=== PATIENT | male | born 2000 | race African-American/Black ===

== ENCOUNTER 2022-06-18 01:17 | Outpatient (CLI) | payer MEDICAID, SELFPAY | END 2022-06-18 01:18 | disposition home or self-care (01) | LOC: AMB 06-22 13:35 | PROVIDERS: Visit Provider Emergency Medicine | DX: R51.9 Headache, unspecified (principal) | CPT/HCPCS: A0425; A0427 ==

== ENCOUNTER 2022-06-18 01:27 | Emergency (ER) | payer MEDICAID, SELFPAY ==
[2022-06-18 01:34] VITALS: BP 122/78; PULSE 72; RESP 18; TEMP 36.7; O2SAT 99; BMI 27.1
[2022-06-18 02:11] VITALS: TEMP 36.7
[2022-06-18] MEDS: KETOROLAC 30 MG/ML inj IM (02:11)
[2022-06-18] MEDS: diphenhydrAMINE 25 MG CAPSULE PO (02:11)
[2022-06-18 02:16] VITALS: BP 118/74; PULSE 75; RESP 18; TEMP 36.8; O2SAT 99
--- NOTE | 2022-06-18 02:32 | ED_ITS ---
HPI - General Adult General Date Seen: 06/18/22 Chief complaint: Unspecified Complaint, Adult Stated complaint: Migraine Time Seen by Provider: 06/18/22 01:28 Source: patient Mode of arrival: EMS Limitations: other History of Present Illness HPI narrative: Patient is a 21-year-old male with underlying polar disorder as well as schizophrenia who presents by EMS for evaluation of what he states are withdrawal symptoms. He tells me that he quit drinking about a month and a half ago, but continued to smoke cigarettes as well as marijuana. He says he ?quit smoking marijuana and tobacco 3 hours ago. He notes that he has a headache since then, and feels tense. He feels like he needs a muscle relaxer. He has prescription bottles with him for lands of pain and risperidone. His thinking is tangential at times, he does admit that he does not always take his medications as prescribed. He has a doctor, Dr. Ortiz in [facility], who he says he sees regularly. He says that this is court mandated. He does admit to hearing voices. He denies that these voices tell him to do anything to himself or others. He does note that he has at times had suicidal ideation but says he is not currently suicidal, and does not have thoughts of harming anyone else. He lives independently in [place]. Related Data Home Medications Medication Instructions Recorded Confirmed hydroxyzine HCl 25 mg tablet 25 mg PO TID PRN 06/18/22 06/18/22 olanzapine 10 mg tablet (Zyprexa) 10 mg PO BID 06/18/22 06/18/22 risperidone 3 mg tablet 3 mg PO QHS 06/18/22 06/18/22 Allergies Allergy/AdvReac Type Severity Reaction Status Date / Time No Known Drug Allergies Allergy Verified 06/18/22 01:37 Review of Systems Status of ROS: Reports: 6 or more systems reviewed and unremarkable except as noted in History and below [facility] Medical History Bipolar 1 disorder ?F31.9 - Bipolar disorder, unspecified (ICD-10) Cannabis use disorder ?F12.90 - Cannabis use, unspecified, uncomplicated (ICD-10) PTSD (post-traumatic stress disorder) ?F43.10 - Post-traumatic stress disorder, unspecified (ICD-10) Schizoaffective disorder, bipolar type ?F25.0 - Schizoaffective disorder, bipolar type (ICD-10) Surgical History No significant past surgical history Social History Smoking Status: Current every day smoker What tobacco products do you use: cigarettes Second hand tobacco smoke exposure: Yes How often do you have a drink containing alcohol: never How often do you have six or more drinks on one occasion: Never AUDIT-C Alcohol total score: 0 Non-prescribed substance use: marijuana (any form) and amphetamines/methamphetamines Exam Narrative: Exam Narrative: Vital signs as noted above. In general, an alert, nontoxic male. Cooperative. Head: Normocephalic, atraumatic. Eyes: Pupils are equal reactive. Extraocular movements are full. Conjunctivae are normal. ENT: Mucous membranes are moist. Throat is normal. Neck: Supple without lymphadenopathy. Heart: Regular rate and rhythm. No murmur or rub. Lungs: Clear bilaterally. No increased work of breathing, crackles or wheezes. Abdomen: Soft and nontender. No organomegaly. Extremities: Well perfused. No edema. No calf tenderness. Pulses intact. Neurologic: Patient is alert and oriented to person and place. Speech is fluent. Face is symmetric. Moves all extremities equally. Affect: Normal. Skin: Warm and dry. Well perfused. Const: Vital Signs, click to edit/add: Vital Signs - 24 hr 06/18/22 01:34 06/18/22 02:11 06/18/22 02:16 Temperature 98.0 F 98.0 F 98.2 F Pulse Rate [Right Pulse Oximeter] 72 75 Respiratory Rate 18 18 Blood Pressure [Ri ght Upper Arm] 122/78 118/74 Pulse Oximetry 99 99 Oxygen Delivery Me thod Room Air Room Air Documenting provider has reviewed patient's vital signs: yes Course Course Hospital Course: I spoke with him at length, he does not appear to present a danger to himself or others. I do not think he requires any psychiatric care acutely. With regard to his headache, I gave him some Toradol and Benadryl. Reassured him that he is not in danger of severe withdrawal from tobacco or marijuana in terms of dangerous physical symptoms. Can take ibuprofen or Tylenol as needed. He has hydroxyzine if needed for anxiety. Encouraged him to take his other medications as prescribed. Follow up with his regular doctor as usual. Return for new or worsening symptoms. Vital Signs Vital signs: Initial Vital Signs Temperature 98.0 F 06/18/22 01:34 Temperature Source Temporal Artery Scan 06/18/22 01:34 Pulse Rate 72 06/18/22 01:34 Respiratory Rate 18 06/18/22 01:34 Blood Pressure 122/78 06/18/22 01:34 Blood Pressure Mean 92 06/18/22 01:34 Blood Pressure Position Sitting 06/18/22 01:34 Pulse Oximetry 99 06/18/22 01:34 Oxygen Delivery Method Room Air 06/18/22 01:34 Vital Signs Temperature 98.0 F 06/18/22 01:34 Pulse Rate 72 06/18/22 01:34 Respiratory Rate 18 06/18/22 01:34 Blood Pressure 122/78 06/18/22 01:34 Pulse Oximetry 99 06/18/22 01:34 Oxygen Delivery Method Room Air 06/18/22 01:34 Temperature 98.2 F 06/18/22 02:16 Pulse Rate 75 06/18/22 02:16 Respiratory Rate 18 06/18/22 02:16 Blood Pressure 118/74 06/18/22 02:16 Pulse Oximetry 99 06/18/22 02:16 Oxygen Delivery Method Room Air 06/18/22 02:16 Discharge Plan Discharge Clinical Impression: Headache, Schizophrenia Patient Disposition: Home, Self-Care Condition: Stable Instructions: General Headache (ED) Additional Instructions: Follow-up with Dr. Ortiz as usual. Return to the ER for severe headache, fever, vomiting or other worsening. Okay to take Tylenol or Motrin at home. Prescriptions: No Action olanzapine [Zyprexa] 10 mg tablet 10 mg PO BID hydroxyzine HCl 25 mg tablet 25 mg PO TID PRN Patient Comments: take 2 tabs three times a day as needed risperidone 3 mg tablet 3 mg PO QHS Patient Comments: take 2 tabs three times a day as needed Stand Alone Forms: [facility] Info Instructions
[2022-06-18 02:37] VITALS: BP 118/74; PULSE 75; RESP 18; TEMP 36.8
== END 2022-06-18 02:12 | disposition home or self-care (01) ==
PROVIDERS: Emergency Provider Emergency Medicine
DX: R51.9 Headache, unspecified (principal); F20.9 Schizophrenia, unspecified
CPT/HCPCS: 96372; 99283; 99284; A9270; J1885

== ENCOUNTER 2022-07-20 07:29 | Outpatient (CLI) | payer MEDICARE, MEDICAID, SELFPAY | END 2022-07-20 07:30 | disposition home or self-care (01) | LOC: AMB 07-24 09:11 | PROVIDERS: Visit Provider Family Medicine | DX: R10.9 Unspecified abdominal pain (principal); K92.0 Hematemesis | CPT/HCPCS: A0425; A0429 ==

== ENCOUNTER 2022-07-21 18:09 | Outpatient (CLI) | payer MEDICARE, MEDICAID, SELFPAY | END 2022-07-21 18:10 | disposition home or self-care (01) | LOC: AMB 07-24 10:54 | PROVIDERS: Visit Provider Family Medicine | DX: F29 Unspecified psychosis not due to a substance or known physiological condition (principal) | CPT/HCPCS: A0425; A0428 ==

== ENCOUNTER 2022-09-25 21:38 | Outpatient (CLI) | payer MEDICARE, MEDICAID, SELFPAY | END 2022-09-25 21:39 | disposition home or self-care (01) | LOC: AMB 09-26 16:08 | PROVIDERS: Visit Provider Family Medicine | DX: F29 Unspecified psychosis not due to a substance or known physiological condition (principal) | CPT/HCPCS: A0425; A0429 ==

== ENCOUNTER 2022-09-25 21:54 | Emergency (ER) | payer MEDICARE, MEDICAID, SELFPAY ==
[2022-09-25 22:19] VITALS: BP 134/86; PULSE 68; RESP 16; TEMP 36.6; O2SAT 98; BMI 22.5
--- NOTE | 2022-09-25 22:41 | ED_ITS ---
HPI - General Adult General Time Seen by Provider: 22:41 Date Seen: 09/25/22 Chief complaint: Unspecified Complaint, Adult Stated complaint: infected tooth, back pain Time Seen by Provider: 09/25/22 22:23 Source: patient, EMS and RN notes reviewed Mode of arrival: EMS Limitations: no limitations History of Present Illness HPI narrative: Patient is a 22-year-old male brought in by EMS for being ?unwell?. Ezekiel is able to tell me that he has dental pain. He has a broken tooth on the bottom left that is painful. He has another broken tooth on the bottom right which is not bothering him. He has not seen a dentist. Has not had fevers. He admits he has underlying schizophrenia, bipolar disorder and multiple personality disorder. He does have a psychiatrist that he follows with. He states he has been taking his medicines. He does admit that his head never slows down, thoughts number slow down. He sometimes will have hallucinations with voices in his head but feels he is at baseline. He is not endorsing any homicidality or suicidality. He did complain of some back pain to EMS or nursing but states that is not a problem. His main concern is the dental pain. He is sitting in the bed when I come in to talk to him. He states he thinks he needs a dose of Narcan for use of fentanyl and methamphetamines 6 months ago. He states he has not used any since then. Does use marijuana. Have reviewed with him that if he used fentanyl and methamphetamines 6 months ago that they are absolutely not in his system anymore. He did seem to accept that from me and did seem reassured. Related Data Home Medications Medication Instructions Recorded Confirmed hydroxyzine HCl 25 mg tablet 25 mg PO TID PRN 06/18/22 09/25/22 olanzapine 10 mg tablet (Zyprexa) 10 mg PO BID 06/18/22 09/25/22 risperidone 3 mg tablet 3 mg PO QHS 06/18/22 09/25/22 Allergies Allergy/AdvReac Type Severity Reaction Status Date / Time No Known Drug Allergies Allergy Verified 06/18/22 01:37 Review of Systems Narrative: As per HPI PFSH PFS Medical History Cannabis use disorder ?F12.90 - Cannabis use, unspecified, uncomplicated (ICD-10) PTSD (post-traumatic stress disorder) ?F43.10 - Post-traumatic stress disorder, unspecified (ICD-10) Bipolar 1 disorder ?F31.9 - Bipolar disorder, unspecified (ICD-10) Schizoaffective disorder, bipolar type ?F25.0 - Schizoaffective disorder, bipolar type (ICD-10) Surgical History No significant past surgical history Social History Smoking Status: Current every day smoker What tobacco products do you use: cigarettes Second hand tobacco smoke exposure: Yes How often do you have a drink containing alcohol: never How often do you have six or more drinks on one occasion: Never AUDIT-C Alcohol total score: 0 Non-prescribed substance use: marijuana (any form) and amphetamines/methamphetamines Exam Const: Vital Signs, click to edit/add: Vital Signs - 24 hr 09/25/22 22:19 Temperature 97.9 F Pulse Rate [Right Pulse Oximeter] 68 Respiratory Rate 16 Blood Pressure [Ri ght Upper Arm] 134/86 Pulse Oximetry 98 Oxygen Delivery Me thod Room Air Documenting provider has reviewed patient's vital signs: yes Other: 22-year-old male sitting in bed. Ivory l does not have the best eye contact with me but will look at me occasionally. He has normal speech, not pressured. Pupils equal round reactive, sclera clear. Face is atraumatic. TMs and canals are normal. Oropharynx with normal tongue, posterior pharynx is normal. He has a 2nd at molar in the back lower left that is broken, can see erythematous tissue, gumline is swollen around it but no fluctuance, no abscess formation. He is tender when I palpate. The last molar on the right lower jaw also has a broken tooth but this does not seem to be bothering him at this time. Neck is supple, no adenopathy, no submental adenopathy or masses. CV regular rate and rhythm no murmur. Course Course Hospital Course: We will give him a dose of Toradol 30 mg IM for pain management. Will initiate penicillin for dental infection. Have spent time talking to him about the dentist having to treat these dental issues, the dentist is definitive management, we have nothing further to offer. He feels he is at his baseline as far as his mental health, does not feel he needs further intervention for that. Vital Signs Vital signs: Initial Vital Signs Temperature 97.9 F 09/25/22 22:19 Temperature Source Temporal Artery Scan 09/25/22 22:19 Pulse Rate 68 09/25/22 22:19 Respiratory Rate 16 09/25/22 22:19 Blood Pressure 134/86 09/25/22 22:19 Blood Pressure Mean 102 09/25/22 22:19 Blood Pressure Position Sitting 09/25/22 22:19 Pulse Oximetry 98 09/25/22 22:19 Oxygen Delivery Method Room Air 09/25/22 22:19 Vital Signs Temperature 97.9 F 09/25/22 22:19 Pulse Rate 68 09/25/22 22:19 Respiratory Rate 16 09/25/22 22:19 Blood Pressure 134/86 09/25/22 22:19 Pulse Oximetry 98 09/25/22 22:19 Oxygen Delivery Method Room Air 09/25/22 22:19 Temperature 97.9 F 09/25/22 23:57 Pulse Rate 68 09/25/22 23:57 Respiratory Rate 16 09/25/22 23:57 Blood Pressure 134/86 09/25/22 23:57 Pulse Oximetry 98 09/25/22 22:19 Oxygen Delivery Method Room Air 09/25/22 22:19 Critical Care Time Critical Care Time Critical Care Time: No Discharge Plan Discharge Clinical Impression: Abscess, dental Patient Disposition: Home, Self-Care Condition: Stable Instructions: Dental Abscess (ED) Additional Instructions: Start the penicillin and take as prescribed, 500 mg 3 times a day for 10 days. Tylenol 1000 mg 3 times a day as needed for pain. Can supplement with ibuprofen per bottle directions if needed for extra pain management. You half to see a dentist for definitive management of your dental issues. Please work on trying to get an appointment with a dentist. Activity Level: Activity as Tolerated Prescriptions: No Action olanzapine [Zyprexa] 10 mg tablet 10 mg PO BID hydroxyzine HCl 25 mg tablet 25 mg PO TID PRN Patient Comments: take 2 tabs three times a day as needed risperidone 3 mg tablet 3 mg PO QHS Patient Comments: take 2 tabs three times a day as needed Follow Up/Referrals: Provider,Not a Local [Primary Care Provider] - Stand Alone Forms: [employer] Info Instructions
[2022-09-25] MEDS: KETOROLAC 30 MG/ML inj IM (23:08)
[2022-09-25 23:57] VITALS: BP 134/86; PULSE 68; RESP 16; TEMP 36.6
== END 2022-09-25 23:45 | disposition home or self-care (01) ==
LOC: ED 23:16
PROVIDERS: Emergency Provider Family Medicine
DX: K04.7 Periapical abscess without sinus (principal)
CPT/HCPCS: 96372; 99283; J1885

== ENCOUNTER 2023-01-12 11:30 | Outpatient (CLI) | payer MEDICARE, MEDICAID, SELFPAY | END 2023-01-12 11:31 | disposition home or self-care (01) | PROVIDERS: Visit Provider Family Medicine | DX: R42 Dizziness and giddiness (principal) | CPT/HCPCS: 80053; 84443 ==

== ENCOUNTER 2023-02-11 17:21 | Emergency (ER) | payer MEDICARE, MEDICAID, SELFPAY ==
[2023-02-11 17:35] VITALS: BP 127/72; PULSE 94; RESP 18; TEMP 37.1; O2SAT 97; BMI 24.4
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
--- NOTE | 2023-02-11 17:57 | ED.NURSE ---
in room to assess pt. Pt appears quite manic. Pt states that he has been smoking meth to treat his fever chills and stomach viruses, complains of nausea. Pt claims last meth use was yesterday. Pt also complains of cuts on his tongue and lips from smoking meth recently. Pt states, I only smoke meth when my heart stops and my organs fail. Pt continues to make a variety of bizarre statements, rambling and talking about nonsensical and unrelated topics.
[2023-02-11] MEDS: ONDANSETRON ODT 4 MG TAB PO (18:16)
--- NOTE | 2023-02-11 19:07 | ED.GENADULT ---
HPI - General Adult General Date Seen: 02/11/23 Chief complaint: Psychiatric Problem/Disorder Stated complaint: Meth withdrawals Time Seen by Provider: 02/11/23 17:22 Source: patient Mode of arrival: ambulatory Limitations: no limitations History of Present Illness HPI narrative: Patient is a 22-year-old male presents emergency department for multiple complaints. These include a headache, nausea, mouth pain. Patient states he has been having mouth pain for the past day. He has been having issues with intermittent nausea for the past several years. He does admit to being a daily marijuana user and does state taking a hot shower improved his symptoms. He also states currently has a headache. He is currently on Haldol twice a day which he states he is taking. Patient also admits to using methamphetamine. States he uses the methamphetamine because he will feel cold and numb drugs for make him feel warmer. He states he last used it yesterday. Patient is able to clearly explained to me he took his issues but does seem to have some pressured speech. He does occasionally ramble. He denies any suicidal or homicidal thoughts. He has recently had a tooth removed he states. Related Data Home Medications Medication Instructions Recorded Confirmed haloperidol 10 mg tablet 10 mg PO BID 01/12/23 01/12/23 Previous Rx's Medication Instructions Recorded amoxicillin 500 mg capsule 500 mg PO TID #30 caps 01/12/23 Magic Mouthwash 10 ml PO .4-6 hours 1 week #120 mL 02/11/23 (Lidocaine/Benadryl/Maalox) 120 mL suspension amoxicillin 875 mg tablet 875 mg PO Q12H #14 tabs 02/11/23 ondansetron 4 mg disintegrating 4 mg PO Q6H #20 tabs 02/11/23 tablet Allergies Allergy/AdvReac Type Severity Reaction Status Date / Time No Known Drug Allergies Allergy Verified 02/11/23 17:59 Review of Systems Status of ROS: Reports: 10 or more systems reviewed and unremarkable except as noted in History and below [facility] Medical History Oppositional defiant disorder ?F91.3 - Oppositional defiant disorder (ICD-10) Cannabis use disorder ?F12.90 - Cannabis use, unspecified, uncomplicated (ICD-10) PTSD (post-traumatic stress disorder) ?F43.10 - Post-traumatic stress disorder, unspecified (ICD-10) Bipolar 1 disorder ?F31.9 - Bipolar disorder, unspecified (ICD-10) Schizoaffective disorder, bipolar type ?F25.0 - Schizoaffective disorder, bipolar type (ICD-10) Surgical History Hx of tonsillectomy ?Z90.89 - Acquired absence of other organs (ICD-10) No significant past surgical history Social History Smoking Status: Current every day smoker What tobacco products do you use: cigarettes Second hand tobacco smoke exposure: Yes How often do you have a drink containing alcohol: never How often do you have six or more drinks on one occasion: Never AUDIT-C Alcohol total score: 0 Non-prescribed substance use: marijuana (any form) and amphetamines/methamphetamines Little interest or pleasure in doing things: more than half the days Feeling down, depressed, or hopeless: nearly every day Exam Narrative: Exam Narrative: Const: Well-nourished, Well-developed, in mild distress Eyes: PERRL, no conjunctival injection, and symmetrical lids HENT: Atraumatic external nose and ears. Moist mucous membranes. Poor dentition with some mild erythema of the gums Neck: Symmetric, trachea midline, No thyromegaly. CVS: RRR, No murmurs or gallops. Peripheral pulses 2+ and equal in all extremities RESP: Unlabored respiratory effort. Clear to auscultation bilaterally. GI: Nontender/Nondistended, No rebound or guarding. MSK:Extremities w/o deformity, Normal Active ROM Skin: Warm, Dry. No rashes or lesions. Neuro: Normal Muscle tone, No focal neurological deficits. Psych: Awake, Alert, & Oriented x3. Does have some pressured speech in will room will when he speaking. No suicidal or homicidal thoughts. Const: Vital Signs, click to edit/add: Vital Signs - 24 hr 02/11/23 17:35 Temperature 98.8 F Pulse Rate [Pulse Oximeter] 94 Respiratory Rate 18 Blood Pressure [Ri ght Upper Arm] 127/72 Pulse Oximetry 97 Oxygen Delivery Me thod Room Air Course Vital Signs Vital signs: Initial Vital Signs Temperature 98.8 F 02/11/23 17:35 Temperature Source Temporal Artery Scan 02/11/23 17:35 Pulse Rate 94 02/11/23 17:35 Pulse Rhythm Regular 02/11/23 17:35 Pulse Strength 3+ Normal 02/11/23 17:35 Respiratory Rate 18 02/11/23 17:35 Blood Pressure 127/72 02/11/23 17:35 Blood Pressure Mean 90 02/11/23 17:35 Blood Pressure Position Sitting 02/11/23 17:35 Pulse Oximetry 97 02/11/23 17:35 Oxygen Delivery Method Room Air 02/11/23 17:35 Vital Signs Temperature 98.8 F 02/11/23 17:35 Pulse Rate 94 02/11/23 17:35 Respiratory Rate 18 02/11/23 17:35 Blood Pressure 127/72 02/11/23 17:35 Pulse Oximetry 97 02/11/23 17:35 Oxygen Delivery Method Room Air 02/11/23 17:35 Temperature 98.8 F 02/11/23 17:35 Pulse Rate 94 02/11/23 17:35 Respiratory Rate 18 02/11/23 17:35 Blood Pressure 127/72 02/11/23 17:35 Pulse Oximetry 97 02/11/23 17:35 Oxygen Delivery Method Room Air 02/11/23 17:35 Medications Administered Medications: Discontinued Medications Generic Name Dose Route Start Last Admin Trade Name Kar PRN Reason Stop Dose Admin Haloperidol 5 mg 02/11/23 20:08 02/11/23 20:20 Haloperidol 5 Mg Tablet PO 02/11/23 20:09 5 mg ONCE ONE Administration Olanzapine 10 mg 02/11/23 20:08 02/11/23 20:13 Olanzapine 5 Mg Tab.Rapdis PO 02/11/23 20:09 10 mg ONCE ONE Administration Ondansetron HCl 4 mg 02/11/23 18:13 02/11/23 18:16 Ondansetron Odt 4 Mg Tab PO 02/11/23 18:14 4 mg ONCE ONE Administration Medical Decision Making [facility] Narrative Medical decision making narrative: Patient is 22-year-old male presenting for multiple complaints. First with the nausea he does admit to cannabinoid use regularly and states hot showers make his symptoms better. He could be suffering from cannabinoid cyclic hyperemesis syndrome. I offered to do labs on this patient but he declined them at this time as he is not want any more blood drawn. Seen his vital signs are stable this does seem reasonable at this time. I do not believe forcing him to have blood drawn were improve his stay in the emergency department or to exchange trouble shooter. We did do an EKG prior to giving him Zofran to make sure he does not have any QT prolongation. There was no prolongation and he was given Zofran and symptoms resolved. He is concerned he has some ulcers in his mouth by not see any at this time. There is some mild erythema on the physical comes in his poor dentition. Patient can be started on antibiotics for this. Also given prescription for Magic mouthwash Patient does have a history of bipolar disorder at this time is difficult to say this is his baseline or if he is having acute manic episode. We did not feel safe plane him go home on along the a taxi as he could also be toxic care on drugs. We were able to contact his mom can and and she states she feels comfortable taking him home at this time. Patient discharged home to her care ECG Data Attestation: I personally reviewed and interpreted this ECG as follows: Prior ECG tracings: not available for review Interpretation: Normal sinus rhythm of 85 beats per minute, normal intervals, normal axis, no ST or T-wave abnormalities. There is a large amount of artifact. Discharge Plan Discharge Clinical Impression: Nausea Patient Disposition: Home, Self-Care Condition: Stable Instructions: Acute Nausea and Vomiting (DC) Additional Instructions: The Zofran can cause and interaction with the Haldol. If he starts having chest pain or lightheadedness stop taking the Zofran in route return to the emergency department. Return to the emergency department for any other new or worsening symptoms Prescriptions: New Magic Mouthwash (Lidocaine/Benadryl/Maalox) 120 mL suspension 10 ml PO .4-6 hours 7 Days Qty: 120 0RF Rx Instructions: Lidocaine Viscous 2 % mucosal solution 40 mL; Maalox 200 mg-200 mg-20 mg/5 mL oral suspension 40 mL; Benadryl 12.5 mg/5 mL oral elixir 40 mL; Per 120 mL SWISH AND SPIT. MAY COMPOUND IF FIRST PRODUCT IS NOT AVAILABLE. amoxicillin 875 mg tablet 875 mg PO Q12H Qty: 14 0RF ondansetron 4 mg tablet,disintegrating 4 mg PO Q6H Qty: 20 0RF No Action haloperidol 10 mg tablet 10 mg PO BID amoxicillin 500 mg capsule 500 mg PO TID Qty: 30 0RF Follow Up/Referrals: Cristian Hill MD [Primary Care Provider] - Stand Alone Forms: [employer] Info Instructions
[2023-02-11] MEDS: OLANZapine 5 MG TAB.RAPDIS 10 MG PO (20:13)
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
[2023-02-11] MEDS: haloperidoL 5 MG TABLET PO (20:20)
--- NOTE | 2023-02-11 20:33 | ED.NURSE ---
Pt more calm at this time. Pt now agreeable to go home with his mother. Pt encouraged to contact 911 for assistance if he feels unsafe at home, pt states he knows how to call 911 and is comfortable doing that if he needs to. Pt departs ER with his mother.
== END 2023-02-11 20:35 | disposition home or self-care (01) ==
PROVIDERS: Emergency Provider Student in an Organized Health Care Education/Training Program; PCP Family Medicine
DX: R11.0 Nausea (principal); F15.20 Other stimulant dependence, uncomplicated
CPT/HCPCS: 93005; 99283; 99284; A9270

== ENCOUNTER 2023-03-05 16:40 | Emergency (ER) | payer MEDICARE, MEDICAID, SELFPAY ==
[2023-03-05 16:47] VITALS: BP 129/75; PULSE 98; RESP 16; TEMP 36.7; O2SAT 98; BMI 27.1
--- NOTE | 2023-03-05 17:38 | ED.DENTAL ---
HPI - Dental/Oral General Date Seen: 03/05/23 Chief complaint: Dental/Oral/Mouth Injury/Pain Stated complaint: toothache Time Seen by Provider: 03/05/23 17:38 Source: patient Mode of arrival: ambulatory Limitations: no limitations History of Present Illness HPI Narrative: Patient is a 22-year-old male presenting to the emergency department for tooth pain. His back right lower more is painful he states. He has seen a dentist and they were unable to remove it and was told he needs to see an oral surgeon. Says he has been having this pain for a while now and previously was given Magic mouthwash which helped with the pain. He is also complaining about a sore throat and states people at his mother's home have been sick with similar symptoms. Denies fevers, chills, weakness, lightheadedness, dizziness, abdominal pain. No other concerns at this time Related Data Home Medications Medication Instructions Recorded Confirmed haloperidol 10 mg tablet 10 mg PO BID 01/12/23 03/05/23 Previous Rx's Medication Instructions Recorded Magic Mouthwash See Rx Instructions .Route 03/05/23 (Lidocaine/Benadryl/Maalox) 120 mL .COMPLEX #120 mL suspension amoxicillin 500 mg tablet 500 mg PO TID #9 tabs 03/05/23 Allergies Allergy/AdvReac Type Severity Reaction Status Date / Time No Known Drug Allergies Allergy Verified 03/05/23 16:52 Review of Systems Status of ROS: Reports: 10 or more systems reviewed and unremarkable except as noted in History and below PFSH PFS Medical History Oppositional defiant disorder ?F91.3 - Oppositional defiant disorder (ICD-10) Cannabis use disorder ?F12.90 - Cannabis use, unspecified, uncomplicated (ICD-10) PTSD (post-traumatic stress disorder) ?F43.10 - Post-traumatic stress disorder, unspecified (ICD-10) Bipolar 1 disorder ?F31.9 - Bipolar disorder, unspecified (ICD-10) Schizoaffective disorder, bipolar type ?F25.0 - Schizoaffective disorder, bipolar type (ICD-10) Surgical History Hx of tonsillectomy ?Z90.89 - Acquired absence of other organs (ICD-10) No significant past surgical history Social History Smoking Status: Current every day smoker What tobacco products do you use: cigarettes Second hand tobacco smoke exposure: Yes How often do you have a drink containing alcohol: never How often do you have six or more drinks on one occasion: Never AUDIT-C Alcohol total score: 0 Non-prescribed substance use: marijuana (any form) and amphetamines/methamphetamines Little interest or pleasure in doing things: more than half the days Feeling down, depressed, or hopeless: nearly every day Exam Narrative: Exam Narrative: Const: Well-nourished, Well-developed, in mild distress Eyes: PERRL, no conjunctival injection, and symmetrical lids HENT: Atraumatic external nose and ears. Moist mucous membranes. Dental tiffany seen right lower back molar. Some erythema around it. Uvula midline, no tonsillar exudate or swelling Neck: Symmetric, trachea midline, No thyromegaly. MSK:Extremities w/o deformity, Normal Active ROM Skin: Warm, Dry. No rashes or lesions. Neuro: Normal Muscle tone, No focal neurological deficits. Psych: Awake, Alert, & Oriented x3. Appropriate mood and affect. Const: Vital Signs, click to edit/add: Vital Signs - 24 hr 03/05/23 16:47 Temperature 98.1 F Pulse Rate [Pulse Oximeter] 98 Respiratory Rate 16 Blood Pressure [Ri ght Upper Arm] 129/75 Pulse Oximetry 98 Oxygen Delivery Me thod Room Air Course Vital Signs Vital signs: Initial Vital Signs Temperature 98.1 F 03/05/23 16:47 Temperature Source Temporal Artery Scan 03/05/23 16:47 Pulse Rate 98 03/05/23 16:47 Pulse Rhythm Regular 03/05/23 16:47 Respiratory Rate 16 03/05/23 16:47 Blood Pressure 129/75 03/05/23 16:47 Blood Pressure Mean 93 03/05/23 16:47 Blood Pressure Position Sitting 03/05/23 16:47 Pulse Oximetry 98 03/05/23 16:47 Oxygen Delivery Method Room Air 03/05/23 16:47 Vital Signs Temperature 98.1 F 03/05/23 16:47 Pulse Rate 98 03/05/23 16:47 Respiratory Rate 16 03/05/23 16:47 Blood Pressure 129/75 03/05/23 16:47 Pulse Oximetry 98 03/05/23 16:47 Oxygen Delivery Method Room Air 03/05/23 16:47 Temperature 98.1 F 03/05/23 16:47 Pulse Rate 98 03/05/23 16:47 Respiratory Rate 16 03/05/23 16:47 Blood Pressure 129/75 03/05/23 16:47 Pulse Oximetry 98 03/05/23 16:47 Oxygen Delivery Method Room Air 03/05/23 16:47 MDM - Dental/Oral MDM Narrative Medical decision making narrative: Patient is a 22-year-old male presenting to the emergency department for dental pain. He does appear to have an infected lower. Will place him on antibiotics. Throat looks clear with normal appearing tonsils. Symptoms are likely viral in nature. Will prescribe him Magic mouthwash. He currently lives alone. 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 I believe he is safe for discharge. Discharge Plan Discharge Clinical Impression: Dental caries Patient Disposition: Home, Self-Care Condition: Stable Instructions: Tooth Extraction (DC) Additional Instructions: Take your medication as prescribed. Return to the emergency department for new or worsening symptoms Prescriptions: New Magic Mouthwash (Lidocaine/Benadryl/Maalox) 120 mL suspension See Rx Instructions .ROUTE .COMPLEX Qty: 120 0RF Rx Instructions: Lidocaine Viscous 2 % mucosal solution 40 mL; Maalox 200 mg-200 mg-20 mg/5 mL oral suspension 40 mL; Benadryl 12.5 mg/5 mL oral elixir 40 mL; Per 120 mL SWISH AND SPIT. MAY COMPOUND IF FIRST PRODUCT IS NOT AVAILABLE. amoxicillin 500 mg tablet 500 mg PO TID Qty: 9 0RF No Action haloperidol 10 mg tablet 10 mg PO BID Follow Up/Referrals: Cristian Hill MD [Primary Care Provider] - Stand Alone Forms: [employer] Info Instructions
== END 2023-03-05 18:29 | disposition home or self-care (01) ==
LOC: ED 17:53
PROVIDERS: Emergency Provider Student in an Organized Health Care Education/Training Program; PCP Family Medicine
DX: K08.89 Other specified disorders of teeth and supporting structures (principal); K02.9 Dental caries, unspecified
CPT/HCPCS: 99282

== ENCOUNTER 2023-06-09 19:33 | Outpatient (CLI) | payer MEDICARE, MEDICAID, SELFPAY | END 2023-06-09 19:34 | disposition home or self-care (01) | LOC: AMB 06-18 03:39 | PROVIDERS: PCP Family Medicine; Visit Provider Student in an Organized Health Care Education/Training Program | DX: R45.1 Restlessness and agitation (principal); R11.2 Nausea with vomiting, unspecified | CPT/HCPCS: A0425; A0429 ==

== ENCOUNTER 2023-06-09 19:42 | Emergency (ER) | payer MEDICARE, MEDICAID, SELFPAY ==
[2023-06-09 19:50] VITALS: BP 125/84; PULSE 88; RESP 16; TEMP 36.3; O2SAT 97
--- NOTE | 2023-06-09 20:50 | ED.GENADULT ---
HPI - General Adult General Date Seen: 06/09/23 Chief complaint: Anxiety Stated complaint: Anxiety, cannot sleep Time Seen by Provider: 06/09/23 19:47 Source: patient and EMS Mode of arrival: EMS Limitations: no limitations History of Present Illness HPI narrative: Patient is a 22-year-old male with multiple personality disorder, schizophrenia presenting to emergency department for multiple complaints. Complaining about tooth pain and diffuse mouth pain along with nausea. He has not vomited yet but states within nauseated for the past few days. He also states he is having difficulty sleeping. Patient current is alone and states he is taking his home psychiatric medication. Is still on good terms with his mother but has not been to her house recently because he is having argument with his brother who lives with her. Currently lives alone. Has admitted to having increased episodes of acting out where he will get frustrated and break his stuff and punch darden. Denies any injuries from this. With the tooth pain he states he last had tooth removed a couple months ago and was not told he needs any further dental work done. Does admit to smoking marijuana and cigarettes. Denies meth use to be able did tell nursing staff that he admits to meth use. Denies suicidal or homicidal ideation. Related Data Home Medications Medication Instructions Recorded Confirmed haloperidol 10 mg tablet 10 mg PO BID 01/12/23 03/05/23 Previous Rx's Medication Instructions Recorded Magic Mouthwash See Rx Instructions .Route 03/05/23 (Lidocaine/Benadryl/Maalox) 120 mL .COMPLEX #120 mL suspension amoxicillin 500 mg tablet 500 mg PO TID #9 tabs 03/05/23 amoxicillin 875 mg tablet 875 mg PO BID #10 tabs 06/09/23 ondansetron 4 mg disintegrating 4 mg PO Q6H #20 tabs 06/09/23 tablet Allergies Allergy/AdvReac Type Severity Reaction Status Date / Time No Known Drug Allergies Allergy Verified 03/05/23 16:52 Review of Systems Status of ROS: Reports: 10 or more systems reviewed and unremarkable except as noted in History and below [facility] Medical History Oppositional defiant disorder ?F91.3 - Oppositional defiant disorder (ICD-10) Cannabis use disorder ?F12.90 - Cannabis use, unspecified, uncomplicated (ICD-10) PTSD (post-traumatic stress disorder) ?F43.10 - Post-traumatic stress disorder, unspecified (ICD-10) Bipolar 1 disorder ?F31.9 - Bipolar disorder, unspecified (ICD-10) Schizoaffective disorder, bipolar type ?F25.0 - Schizoaffective disorder, bipolar type (ICD-10) Surgical History Hx of tonsillectomy ?Z90.89 - Acquired absence of other organs (ICD-10) No significant past surgical history Social History Smoking Status: Current every day smoker What tobacco products do you use: cigarettes Second hand tobacco smoke exposure: Yes How often do you have a drink containing alcohol: never How often do you have six or more drinks on one occasion: Never AUDIT-C Alcohol total score: 0 Non-prescribed substance use: marijuana (any form) and amphetamines/methamphetamines Little interest or pleasure in doing things: more than half the days Feeling down, depressed, or hopeless: nearly every day Exam Narrative: Exam Narrative: Const: Well-nourished, Well-developed, in mild distress Eyes: PERRL, no conjunctival injection, and symmetrical lids HENT: Atraumatic external nose and ears. Moist mucous membranes. Relatively poor dentition with some cavities seen on his posterior teeth and inflammation seen below left lower molar Neck: Symmetric, trachea midline, No thyromegaly. CVS: RRR, No murmurs or gallops. Peripheral pulses 2+ and equal in all extremities RESP: Unlabored respiratory effort. Clear to auscultation bilaterally. GI: Nontender/Nondistended, No rebound or guarding. MSK:Extremities w/o deformity, Normal Active ROM Skin: Warm, Dry. No rashes or lesions. Neuro: Normal Muscle tone, No focal neurological deficits. Psych: Awake, Alert, & Oriented x3. Appropriate mood and affect. Const: Vital Signs, click to edit/add: Vital Signs - 24 hr 06/09/23 19:50 Temperature 97.4 F L Pulse Rate [Pulse Oximeter] 88 Respiratory Rate 16 Blood Pressure [Ri ght Upper Arm] 125/84 Pulse Oximetry 97 Oxygen Delivery Me thod Room Air Course Vital Signs Vital signs: Initial Vital Signs Temperature 97.4 F L 06/09/23 19:50 Temperature Source Temporal Artery Scan 06/09/23 19:50 Pulse Rate 88 06/09/23 19:50 Respiratory Rate 16 06/09/23 19:50 Blood Pressure 125/84 06/09/23 19:50 Blood Pressure Mean 97 06/09/23 19:50 Blood Pressure Position Sitting 06/09/23 19:50 Pulse Oximetry 97 06/09/23 19:50 Oxygen Delivery Method Room Air 06/09/23 19:50 Vital Signs Temperature 97.4 F L 06/09/23 19:50 Pulse Rate 88 06/09/23 19:50 Respiratory Rate 16 06/09/23 19:50 Blood Pressure 125/84 06/09/23 19:50 Pulse Oximetry 97 06/09/23 19:50 Oxygen Delivery Method Room Air 06/09/23 19:50 Temperature 97.4 F L 06/09/23 19:50 Pulse Rate 88 06/09/23 19:50 Respiratory Rate 16 06/09/23 19:50 Blood Pressure 125/84 06/09/23 19:50 Pulse Oximetry 97 06/09/23 19:50 Oxygen Delivery Method Room Air 06/09/23 19:50 Medical Decision Making MDM Narrative Medical decision making narrative: Patient is a 22-year-old male presenting for multiple complaints. He does have a history of psychiatric issues. I have seen him last time he has come to the emergency department and this is for appearing to be his baseline. I do not believe he is a threat to himself or others and states he is not once inpatient treatment at this time. Due to that I do not believe is necessary for a mental health assessment from [facility] as again this appears to be his baseline based on my multiple interactions with him. His abdomen is soft on palpation he is not having any pain at this time. We will give him Zofran for the nausea. He requested not to get an IV and this seems reasonable at this time is he has not had any vomiting. Zofran was given. Fourth poor dentition or give him antibiotics to help with inflammation. I am hesitant to give him a prescription of steroids considering he does have baseline psychiatric issues and there is the low chance that prednisone could cause a psychosis. He will be discharged home. Discharge Plan Discharge Clinical Impression: Tooth infection Patient Disposition: Home, Self-Care Condition: Stable Instructions: Dental Abscess (ED) Additional Instructions: Follow-up with a dentist if he continued to have mouth pain. Use the antibiotic and Zofran as directed. Return for new or worsening symptoms Prescriptions: New ondansetron 4 mg tablet,disintegrating 4 mg PO Q6H Qty: 20 0RF amoxicillin 875 mg tablet 875 mg PO BID Qty: 10 0RF No Action haloperidol 10 mg tablet 10 mg PO BID Magic Mouthwash (Lidocaine/Benadryl/Maalox) 120 mL suspension See Rx Instructions .ROUTE .COMPLEX Qty: 120 0RF Rx Instructions: Lidocaine Viscous 2 % mucosal solution 40 mL; Maalox 200 mg-200 mg-20 mg/5 mL oral suspension 40 mL; Benadryl 12.5 mg/5 mL oral elixir 40 mL; Per 120 mL SWISH AND SPIT. MAY COMPOUND IF FIRST PRODUCT IS NOT AVAILABLE. amoxicillin 500 mg tablet 500 mg PO TID Qty: 9 0RF Follow Up/Referrals: Cristian Hill MD [Primary Care Provider] - Stand Alone Forms: [employer] Info Instructions
== END 2023-06-09 21:05 | disposition home or self-care (01) ==
PROVIDERS: Emergency Provider Student in an Organized Health Care Education/Training Program; PCP Family Medicine
DX: K08.89 Other specified disorders of teeth and supporting structures (principal)
CPT/HCPCS: 99283

== ENCOUNTER 2023-10-26 12:47 | Outpatient (REF) | payer MEDICARE, MEDICAID, SELFPAY ==
[2023-10-26 13:18] LABS: Basophils Absolute Auto 0.03 K/uL (0.00-0.30); Basophils Percent Auto 0.5 % (0.0-3.0); Eosinophils Absolute Auto 0.28 K/uL (0.00-0.50); Eosinophils Percent Auto 4.8 % (0.0-7.0); Hematocrit 45.5 % (37.0-53.0); Hemoglobin* 14.8 gm/dL (13.5-17.5); Immature Granulocytes Abs Auto 0.02 K/uL (0.00-0.30); Immature Granulocytes Pct Auto 0.3 %; Lymphocytes Absolute Auto 1.87 K/uL (0.90-2.90); Lymphocytes Percent Auto 32.1 % (20-44); Mean Corpuscular HGB Conc 33 gm/dL (32-36); Mean Corpuscular Hemoglobin 30 pg (26-34); Mean Corpuscular Volume 91 fL (80-100); Monocytes Percent Auto 6.5 % (0.0-11.0); Neutrophils Absolute Auto 3.24 K/uL (1.7-7.0); Neutrophils Percent Auto 55.8 % (42.0-72.0); Platelet Count* 180 K/uL (140-440); RDW Coefficient of Variation % 12.3 % (11.5-15.5); Red Blood Count 5.02 m/uL (4.30-5.90); White Blood Count* 5.82 K/uL (4.50-11.00)
[2023-10-26 13:40] LABS: Slide Review Reflex No
[2023-10-26 13:46] LABS: Free T4 Free Thyroxine* 0.87 ng/dL (0.70-1.85); Vitamin D 25 Hydroxy* 24 ng/mL (30-80)
[2023-10-26 13:49] LABS: Hemoglobin A1C* 5.3 % (0-5.6)
[2023-10-26 14:00] LABS: Thyroid Stimulating Hormone* 0.206 uIU/mL (0.270-4.20)
[2023-10-26 14:21] LABS: Albumin* 4.4 g/dL (3.3-5.0)
[2023-10-26 14:22] LABS: Chloride* 105 mmol/L (96-114); Potassium* 4.2 mmol/L (3.6-5.1); Sodium* 139 mmol/L (135-149)
[2023-10-26 14:24] LABS: Alkaline Phosphatase* 52 U/L (40-150); Anion Gap 7 mEq/L (7-15); Aspartate Amino Transferase* 29 U/L (12-35); Bilirubin Total* 0.6 mg/dL (0.1-1.5); Blood Urea Nitrogen* 10 mg/dL (5-24); Carbon Dioxide* 27 mmol/L (20-32); Cholesterol* 127 mg/dL (90-199); Estimated Glomerular Filt Rate 107 ml/min; Total Protein* 6.9 g/dL (6.0-8.3)
[2023-10-26 14:25] LABS: Alanine Aminotransferase* 22 U/L (4-50); Calcium* 9.3 mg/dL (8.4-10.6); Glucose* 129 mg/dL (60-115); HDL Cholesterol* 34 mg/dL (>=40); LDL Cholesterol Calculated 73 mg/dL (<100); Magnesium* 1.9 mg/dL (1.5-2.6); Triglycerides* 98 mg/dL (40-149)
[2023-10-26 15:11] LABS: Vitamin B12* 369 pg/mL (243-894)
[2023-10-28 16:39] LABS: Prolactin 9.8 ng/mL (2.1-17.7)
== END 2023-10-26 12:48 | disposition home or self-care (01) ==
LOC: NPINS 12:47
PROVIDERS: PCP Family Medicine; Visit Provider Nurse Practitioner Psychiatric/Mental Health
DX: F15.11 Other stimulant abuse, in remission (principal); F43.10 Post-traumatic stress disorder, unspecified; F41.9 Anxiety disorder, unspecified; F25.0 Schizoaffective disorder, bipolar type; F31.2 Bipolar disorder, current episode manic severe with psychotic features; F12.20 Cannabis dependence, uncomplicated
CPT/HCPCS: 80053; 80061; 82306; 82607; 83036; 83735; 84146; 84439; 84443; 85025

== ENCOUNTER 2024-03-15 03:04 | Emergency (ER) | payer MEDICARE, MEDICAID, SELFPAY ==
[2024-03-15 03:12] VITALS: BP 126/87; PULSE 87; RESP 16; TEMP 36.7; O2SAT 96; BMI 27.1
--- NOTE | 2024-03-15 03:28 | ED.HA ---
HPI - Headache General Date Seen: 03/15/24 Chief Complaint: Headache/Migraine Stated Complaint: migraine/vomiting Time Seen by Provider: 03/15/24 03:12 Source: patient Mode of arrival: ambulatory Limitations: no limitations History of Present Illness HPI Narrative: Patient is a 23-year-old gentleman who presents ambulatory to the emergency room after he woke up sweating, and had a headache. Said he went to bed feeling okay, head is normal marijuana, and 2 beers. Thinks he might had a fever but is unclear about this goes he did take his temperature, took some Tylenol before he came in however is unable to tell me how much he took. Denies any visual disturbances, describes his headache is a hat band distribution around his head, which did have some dry heaving in the triage room. Is not throwing up any blood, or any other vomitus. Denies any abdominal pain, diarrhea, dysuria frequency, coughing, or any other symptoms. He is unsure if he got the flu shot this year. Has a significant history of mental health issues. As I read in his chart. Tells me he is taking his medications as directed. The sweating did wake him from sleep. Tells me this is not the worst headache he has ever had. Has been here before for headaches. Onset description: while at rest Location: frontal, temporal and diffuse Severity: moderate Quality & Timing: aching and throbbing Exacerbating factors: exertion Context: occurred at rest Associated symptoms: fever, nausea, vomiting, diaphoresis and malaise Treatments prior to arrival: acetaminophen Related Data Home Medications ?Medication ?Instructions ?Recorded ?Confirmed haloperidol 10 mg tablet 10 mg PO BID 01/12/23 03/05/23 gabapentin 100 mg capsule 100 mg PO 3XD PRN anxiety 03/15/24 03/15/24 propranolol 20 mg tablet 20 mg PO BID anxiety 03/15/24 03/15/24 Previous Rx's ?Medication ?Instructions ?Recorded Magic Mouthwash See Rx Instructions .Route 03/05/23 (Lidocaine/Benadryl/Maalox) 120 mL .COMPLEX #120 mL suspension amoxicillin 500 mg tablet 500 mg PO TID #9 tabs 03/05/23 amoxicillin 875 mg tablet 875 mg PO BID #10 tabs 06/09/23 ondansetron 4 mg disintegrating 4 mg PO Q6H #20 tabs 06/09/23 tablet Allergies Allergy/AdvReac Type Severity Reaction Status Date / Time No Known Drug Allergies Allergy Verified 03/05/23 16:52 Review of Systems Status of ROS: Reports: 10 or more systems reviewed and unremarkable except as noted in History and below [facility] Medical History Oppositional defiant disorder ?F91.3 - Oppositional defiant disorder (ICD-10) Cannabis use disorder ?F12.90 - Cannabis use, unspecified, uncomplicated (ICD-10) PTSD (post-traumatic stress disorder) ?F43.10 - Post-traumatic stress disorder, unspecified (ICD-10) Bipolar 1 disorder ?F31.9 - Bipolar disorder, unspecified (ICD-10) Schizoaffective disorder, bipolar type ?F25.0 - Schizoaffective disorder, bipolar type (ICD-10) Surgical History Hx of tonsillectomy ?Z90.89 - Acquired absence of other organs (ICD-10) No significant past surgical history Social History Smoking Status: Current every day smoker What tobacco products do you use: cigarettes Second hand tobacco smoke exposure: Yes How often do you have a drink containing alcohol: never How often do you have six or more drinks on one occasion: Never AUDIT-C Alcohol total score: 0 Non-prescribed substance use: marijuana (any form) and amphetamines/methamphetamines Exam Narrative: Exam Narrative: On examination in room 6 he is in no apparent distress pupils are equal round reactive speaking normally GCS is 15/15. Nontoxic. No pressured speech, alert to 3 spheres. TMs are normal oropharynx is normal cranial nerves 3-12 are normal there is no nystagmus, neck is supple with no meningismus. Chest is good air entry bilateral with no wheezing crackles noted heart sounds are normal no clicks murmurs or gallops abdomen is soft there is no guarding no organomegaly moves all extremities independently well with absence of any tremors. Const: Vital Signs, click to edit/add: Vital Signs - 24 hr 03/15/24 03:12 Temperature 98.0 F Pulse Rate [Left P ulse Oximeter] 87 Respiratory Rate 16 Blood Pressure [Ri ght Upper Arm] 126/87 Pulse Oximetry 96 Oxygen Delivery Me thod Room Air Documenting provider has reviewed patient's vital signs: yes Course Reevaluation(s) Time of Reevaluation #1: 04:33 Reevaluation #1: Patient reports feeling better and is requesting to go home, I think this is reasonable. Vital Signs Vital signs: Initial Vital Signs Temperature 98.0 F 03/15/24 03:12 Temperature Source Temporal Artery Scan 03/15/24 03:12 Pulse Rate 87 03/15/24 03:12 Pulse Rhythm Regular 03/15/24 03:12 Respiratory Rate 16 03/15/24 03:12 Blood Pressure 126/87 03/15/24 03:12 Blood Pressure Mean 100 03/15/24 03:12 Blood Pressure Position Sitting 03/15/24 03:12 Pulse Oximetry 96 03/15/24 03:12 Oxygen Delivery Method Room Air 03/15/24 03:12 Vital Signs Temperature 98.0 F 03/15/24 03:12 Pulse Rate 87 03/15/24 03:12 Respiratory Rate 16 03/15/24 03:12 Blood Pressure 126/87 03/15/24 03:12 Pulse Oximetry 96 03/15/24 03:12 Oxygen Delivery Method Room Air 03/15/24 03:12 Temperature 98.0 F 03/15/24 03:12 Pulse Rate 87 03/15/24 03:12 Respiratory Rate 16 03/15/24 03:12 Blood Pressure 126/87 03/15/24 03:12 Pulse Oximetry 96 03/15/24 03:12 Oxygen Delivery Method Room Air 03/15/24 03:12 Medications Administered Medications: Discontinued Medications Generic Name Dose Route Start Last Admin Trade Name Freq PRN Reason Stop Dose Admin Ibuprofen 800 mg 03/15/24 03:28 03/15/24 03:33 Ibuprofen 400 Mg Tablet PO 03/15/24 03:29 800 mg ONCE ONE Administration Ondansetron HCl 4 mg 03/15/24 03:28 03/15/24 03:33 Ondansetron Odt 4 Mg Tab PO 03/15/24 03:29 4 mg ONCE ONE Administration MDM - Headache MDM Narrative Medical decision making narrative: I discussed with him, this could be just is normal headache, but this also could be influenza. As it is going around in the community. He does not have a fever here, he feels better it is probably because he took the Tylenol. We will do a swab for triple virus, I will give him some ibuprofen and some Zofran. I did offer him IV medications but he declined these interventions. Differential Diagnosis Differential diagnosis: Likely migraine, tension headache, subarachnoid hemorrhage, headache, meningitis, sinusitis and postconcussion syndrome Medical Records Attestation: I reviewed the patient's medical records. Lab Data Labs: Lab Results 03/15/24 Range/Units 03:35 SARS-CoV-2 (PCR) Negative SARS-CoV-2 (Negative) Influenza Type A (PCR) Negative PCR FLU A (Negative) Influenza Type B (PCR) Negative PCR FLU B (Negative) RSV (PCR) Negative PCR RSV (Negative) Discharge Plan Discharge Clinical Impression: Headache, Migraine Patient Disposition: Home w/ Parent or Adult Condition: Improved Instructions: Migraine Headache (ED), Acute Headache (DC) Additional Instructions: Home,rest and use of the ibuprofen 800 mg po tid. Return if worsening signs and symptoms. Your swabs for virus is negative Activity Level: Light activity Discharge Diet: Regular Prescriptions: No Action haloperidol 10 mg tablet 10 mg PO BID ondansetron 4 mg tablet,disintegrating 4 mg PO Q6H Qty: 20 0RF amoxicillin 875 mg tablet 875 mg PO BID Qty: 10 0RF gabapentin 100 mg capsule 100 mg PO 3XD PRN (Reason: anxiety) propranolol 20 mg tablet 20 mg PO BID Magic Mouthwash (Lidocaine/Benadryl/Maalox) 120 mL suspension See Rx Instructions .ROUTE .COMPLEX Qty: 120 0RF Rx Instructions: Lidocaine Viscous 2 % mucosal solution 40 mL; Maalox 200 mg-200 mg-20 mg/5 mL oral suspension 40 mL; Benadryl 12.5 mg/5 mL oral elixir 40 mL; Per 120 mL SWISH AND SPIT. MAY COMPOUND IF FIRST PRODUCT IS NOT AVAILABLE. amoxicillin 500 mg tablet 500 mg PO TID Qty: 9 0RF Follow Up/Referrals: Cristian Hill MD [Primary Care Provider] - Stand Alone Forms: [facility] Info Instructions
[2024-03-15] MEDS: ONDANSETRON ODT 4 MG TAB PO (03:33)
[2024-03-15] MEDS: IBUPROFEN 400 MG TABLET 800 MG PO (03:33)
[2024-03-15 04:16] LABS: PCR FLU A Negative PCR FLU A (Negative); PCR FLU B Negative PCR FLU B (Negative); PCR RSV Negative PCR RSV (Negative); SARS PCR* Negative SARS-CoV-2 (Negative)
== END 2024-03-15 04:31 | disposition home or self-care (01) ==
PROVIDERS: Emergency Provider Family Medicine; PCP Family Medicine
DX: G43.909 Migraine, unspecified, not intractable, without status migrainosus (principal)
CPT/HCPCS: 87631; 99283; 99284; A9270